=== PATIENT | male | born 1955 | race Caucasian/White ===

== ENCOUNTER 2020-08-11 16:47 | Emergency (ER) | payer OTHER ==
[~2020-08-11] VITALS: Ht 177.8 cm; Wt 81.6 kg
[2020-08-11 16:53] VITALS: BP 103/73
[2020-08-11] MEDS ORDERED: DILTIAZEM 25 MG/5 ML VIAL IVP ONE (17:05)
--- NOTE | 2020-08-11 17:15 | NUR ---
COLLECTED [facility]IPSCOM[facility], GAVE TO JOSEPH [facility]NER.
--- NOTE | 2020-08-11 17:21 | NUR ---
65 YEAR OLD MALE BIBA IF DIZZINESS EPISODES X 3 DAYS. PER EMS EPISODES OF RAPID HR RANGING BETWEEN 100-[address]TE, AND LASTED UP TO A MIN. PT DENIES LOC. PT STATES HE HAS BEEN EATING VERY LITTLE BECAUSE HE FEELS THOUGH HE KEEPS CHOKING WHEN EATING. PT DENIES SOB. PT AOX4, BREATHING EVEN AND UNLABORED, SKIN WARM AND DRY. BED IN LOWEST POSITION, LOCKED, BED RAIL UPX1. PMH - DENIES ALLERGIES - NKA
[2020-08-11 17:27] LABS: BASOPHILS % (AUTO) 0.8 % (0.0-2.0); EOSINOPHILS % (AUTO) 0.7 % (0.0-4.0); HEMATOCRIT 39.2 % (36-52); HEMOGLOBIN 13.5 g/dL (12.0-18.0); LYMPHOCYTES # (AUTO) 1.4 K/uL (2.0-11.5); LYMPHOCYTES % (AUTO) 25.5 % (20.5-51.1); MEAN CORPUSCULAR HEMOGLOBIN 32 pg (27-31); MEAN CORPUSCULAR HGB CONC 35 g/dL (33-37); MEAN CORPUSCULAR VOLUME 92.5 fL (80-94); MONOCYTES # (AUTO) 0.5 K/uL (0.8-1.0); MONOCYTES % (AUTO) 8.7 % (1.7-9.3); NEUTROPHILS # (AUTO) 3.4 K/uL (1.8-7.7); NEUTROPHILS % (AUTO) 64.3 % (42.2-75.2); PLATELET COUNT (AUTO) 189 K/uL (140-450); RED BLOOD CELL COUNT(AUTO) 4.24 MIL/uL (4.20-6.10); RED CELL DISTRIBUTION WIDTH 14.3 % (11.6-13.7); WHITE BLOOD COUNT (AUTO) 5.4 K/uL (4.8-10.8)
--- NOTE | 2020-08-11 17:28 | NUR ---
X-Ray at bedside.
[2020-08-11 17:45] LABS: PROTHROMBIN TIME 11.3 secs (10.8-13.4)
[2020-08-11 17:53] LABS: APPEARANCE,URINE CLEAR (CLEAR); BILIRUBIN,URINE NEGATIVE (NEGATIVE); BLOOD, URINE NEGATIVE (NEGATIVE); COLOR,URINE YELLOW (YELLOW); LEUKOCYTE ESTERASE ,URINE NEGATIVE (NEGATIVE); NITRITE, URINE NEGATIVE (NEGATIVE); PH,URINE 7.5 (5.0-9.0); UGLUCOSE NEGATIVE (NEGATIVE)
[2020-08-11 17:55] LABS: ALBUMIN 3.1 g/dL (3.4-5.0); ANION GAP 14.1 (8-16); CARBON DIOXIDE 25.1 mmol/L (21-32); CREATININE 0.8 mg/dL (0.6-1.3); POTASSIUM 3.2 mmol/L (3.5-5.1)
[2020-08-11 18:01] LABS: BARBITURATE, URINE NEGATIVE ng/ml (NEG <=200); BENZODIAZEPINE, URINE NEGATIVE ng/mL (NEG <=200); CANNABINOID, URINE NEGATIVE ng/mL (NEG <=50); COCAINE, URINE NEGATIVE ng/mL (NEG <=300)
[2020-08-11 18:02] LABS: OPIATE, URINE NEGATIVE ng/mL (NEG <=2000); PHENCYCLIDINE SCREEN,URINE NEGATIVE ng/mL (NEG <=25)
[2020-08-11] MEDS ORDERED: DILTIAZEM 30 MG TAB PO ONE (18:15)
[2020-08-11] MEDS ORDERED: ONDANSETRON 4 MG/2 ML VIAL IVP ONE (18:20)
--- NOTE | 2020-08-11 18:59 | NUR ---
Patient to be transferred to [facility]. Is being transferred due to higher level of care. Receiving facility has accepting physician and available space. ER physician has signed transfer form. Patient or responsible libertarian has agreed to transfer and signed form. Patient belongings inventoried and will be sent with patient. Copy of nursing notes, lab reports, EKG, Physicians Orders and X-rays to be sent with patient. Report called to at receiving facility. [facility] ambulance service has been called for transfer. ETA is 45mins.
--- NOTE | 2020-08-11 19:14 | NUR ---
REPORT GIVEN TO CJ GALLO, TRANSFER OF CARE AT THIS TIME
[2020-08-11] MEDS ORDERED: ACETAMINOPHEN 325 MG TAB PO ONE (19:15)
--- NOTE | 2020-08-11 19:15 | NUR ---
PT ALERT AND AWAKE, BREATHING EVEN AND UNLABORED, NO DISTRESS NOTED.
--- NOTE | 2020-08-11 19:16 | NUR ---
RECEIVED REPORT FROM FEI GALLO FOR CONTINUITY OF CARE
--- NOTE | 2020-08-11 19:19 | NUR ---
[facility] TRANSPORT AT BEDSIDE
--- NOTE | 2020-08-11 19:28 | NUR ---
Patient to be transferred to [facility] ER. Is being transferred due to NEED FOR HIGHER LEVEL OF CARE. Receiving facility has accepting physician and available space. ER physician has signed transfer form. Patient or responsible constitution party has agreed to transfer and signed form. Patient belongings inventoried and will be sent with patient. Copy of nursing notes, lab reports, EKG, Physicians Orders and X-rays to be sent with patient. Report DONE BY FEI GALLO at receiving facility. JOSE ASSISTED PATIENT FOR TRANSFER. LATEST VS STABLE.
[2020-08-11 19:29] VITALS: BP 107/61
--- NOTE | 2020-08-11 19:29 | NUR ---
PT TAKEN BY [facility] TRANSPORT TO [facility]
== END 2020-08-11 19:29 | disposition home or self-care (01) ==
LOC: MED 16:47
DX: I48.20 Chronic atrial fibrillation, unspecified (principal); Z20.822 Contact with and (suspected) exposure to COVID-19; R42 Dizziness and giddiness; Z98.890 Other specified postprocedural states
CPT/HCPCS: 36415; 71045; 80053; 80305; 81003; 83880; 84443; 84484; 85025; 85610; 87426; 93005; 96374; 96375; 99285; J2405; J3490